=== PATIENT | female | born 1935 | race Caucasian/White ===

== ENCOUNTER 2016-06-23 08:48 | Emergency (ER) | payer OTHER ==
[2016-06-23 09:05] VITALS: RESP 18; TEMP 97.3
--- NOTE | 2016-06-24 07:38 | PDOC ---
Sore Throat/Dental Pain HPI - General Chief Complaint: Sore Throat Stated Complaint: pain to her mouth and gums Date Seen by Provider: 06/23/16 Time Seen by Provider: 09:00 Source: POSITIVE: Patient Exam Limitations: POSITIVE: No limitations Nurse's Notes Reviewed & Considered: Yes - History of Present Illness Initial Comments: The patient is an 80-year-old female. She presents to the emergency room with an approximately one-week history of "sore mouth and gums". She's not noticed any blisters or skin lesions. She wears dentures, both upper and lower. Mild sore throat. No fevers or chills. She hasn't been able to eat without difficulty. She states her mouth feels "dry". Location: Other (Mouth and gums) Timing: REPORTS: Gradual, Getting Worse Duration: <1 week (Approximately one week) Severity: Moderate Quality: REPORTS: "Pain" Context: DENIES: Foreign Body, Ingestion, Fractured Tooth, Other Modifying Factors: worse with: Rest, Exertion, Coughing, OTC Cough Expectorant, OTC Cough Suppressant, Deep Breathing, Lying Flat, Heat, Cold, Other Associated Symptoms: DENIES: Fever, Chills, Unable to Swallow, Runny Nose, Congestion, Toothache, Facial Pain, Earache, Swollen Jaw, Swollen Face, Sore Throat, Jaw Pain, Cough, Swollen Glands, Other Similar Symptoms Previously: No Recently seen/treated/hospitalized: No Any Prior Injuries Related to Current Complaint?: No - Patient Home Medications Home Medications: Home Medications Famotidine [Pepcid] 20 mg PO DAILY #120 tab 02/02/16 Gabapentin 300 mg PO TID PRN #90 cap 03/14/16 Nystatin Susp [Mycostatin Susp] 100,000 unit PO Q6H #280 ml 06/23/16 - Patient Allergies Allergies/Adverse Reactions: Allergies Allergy/AdvReac Type Severity Reaction Status Date / Time erythromycin base Allergy Intermediate NAUSEA Verified 06/23/16 08:53 Estrogens Allergy Intermediate SWELLING Verified 06/23/16 08:53 Tetanus Vaccines and Toxoid Allergy Unknown NOT Verified 06/23/16 08:53 [Tetanus Vaccines & Toxoid] APPLICABLE EGGS Allergy Intermediate SWELLING Uncoded 06/23/16 08:53 Tetanus Allergy Unknown NOT Uncoded 06/23/16 08:53 APPLICABLE Past Medical History - heen HEENT History: Denies History Cardiovascular History: Aneurysm Respiratory History: Denies History Gastrointestinal History: Other (please comment) Additional Gastrointestinal History: colon ca Genitourinary History: Denies History Endocrine History: Denies History Musculoskeletal History: Back Pain Prosthesis or Implant: No Neurological History: Denies History Blood Disorders: Denies History Psychiatric History: Denies History History of Sexually Transmitted Diseases: No Female Reproductive History: Hysterectomy Cancer History: Breast, Colon Cancer Treatment / Date(s) of Treatment: 2015 colon In Past Year Been Physically Harmed or Verbally Threatened: No History of MDRO: No History of Other Communicable Diseases: No Tobacco Use: Never Smoker Alcohol Use: None Substance Use Type: None Previous Surgical History: Yes Type / Date of Surgery: lumpectomies, partial hyst Past Medical History Reviewed: Reviewed - No Changes ROS - Limitations ROS Limitations: No Limitations Constitution: REPORTS: Denies Symptoms Cardiovascular: REPORTS: Denies Cardiac Symptoms Respiratory: REPORTS: Denies Resp Symptoms Neurological: REPORTS: Denies Neuro Symptoms Gastrointestinal: REPORTS: Denies GI Symptoms Endocrine: REPORTS: Denies Symptoms Musculoskeletal: REPORTS: Denies MS Symptoms Genitourinary: REPORTS: Denies Symptoms Eyes: REPORTS: Denies Symptoms ENT: REPORTS: Other (Pain to upper and lower gums tongue and buccal areas) Skin: REPORTS: Denies Skin Symptoms Lympathic: REPORTS: Denies Lympathic Symptoms Immunologic: POSITIVE: Denies Symptoms Psychiatric: POSITIVE: Denies Psych Symptoms Sore Throat/Dental Pain Exam - General Appearance General Appearance: REPORTS: Alert, Cooperative, No Acute Distress, No Evidence of Trauma - HEENT Head / Face: POSITIVE: Atraumatic, Normal Inspection, No Facial Swelling Eyes: POSITIVE: Inspection Normal, PERRL, EOM's Intact, Eyelids Uninjured, Conjunctivae Uninjured, No Nystagmus, No Globe Trauma, Sclera Normal, Normal Corneal Inspection Ears: POSITIVE: Ears Normal Inspection, TM Normal Inspection, Auricle Normal, External Canal Normal Nose: POSITIVE: Inspection Normal, No Apparent Trauma, Nares Normal, No CSF Leak Oropharynx: POSITIVE: Pharynx Inspect. Nml, Airway Intact, Voice Normal, Moist Mucous Membranes, No Oral Injury, Lips Normal, No Drooling, No Thrush, Normal Gag Reflex. NEGATIVE: External Inspection Nml (Tongue and gums erythematous with some swelling of gums. Examination was made after dentures were removed.) , Gums Normal (Erythematous with mild swelling) Neck: POSITIVE: Supple, Normal Inspection, Non Tender Dental: NEGATIVE: No Dental Injury (Edentulous), Dental Injury (Edentulous) - Respiratory Respiratory: REPORTS: No Respiratory Distress, Breath Sounds Normal, No Pleuritic Chest Pain, Speaks Full Sentences, No Pain on Inspiration - Cardiovascular Cardiovascular: REPORTS: Regular Rate and Rhythm, Heart Sounds Normal, Equal Pulses, Strong Pulses Peripheral Pulses: Radial (R): 2+, Radial (L): 2+ - Abdomen Abdomen: Soft: (All Quadrants), Normal Bowel Sounds: (All Quadrants), Denies Tenderness: (All Quadrants), No Splenomegaly: (All Quadrants), No Hepatomegaly: (All Quadrants), No Guarding: (All Quadrants), No Rebound: (All Quadrants), No Palpable Pulse: (All Quadrants), No Palpabale Mass: (All Quadrants), No Distention: (All Quadrants), No Rigidity: (All Quadrants) - Extremities Extremity: Non-Tender: (All Extremities), Normal ROM: (All Extremities), Normal Inspection: (All Extremities) - Skin Skin: REPORTS: Intact, Normal For Race, Warm, Dry, No Rash - Neurological / Psychological Neurological: POSITIVE: Affect Apporpriate, Oriented X3, 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, Motor Normal, Sensation Normal Sore Throat/Dental Progress - Results Reviewed by me Lab Results Reviewed: Yes (strep screen negative) - Patient's Progress Pain Medication Addressed: POSITIVE: Yes (Recommended Tylenol) School/Work Release Addressed: POSITIVE: Not Applicable Re-Examine Time:: 09:30 Status: POSITIVE: Unchanged, Re-Examined - Consult Counseled: POSITIVE: Patient, RE: DX, RE: Need for F/U Patient Care Time - Estimated PCT Patient Care Time (In Minutes): 25 Vital Signs - VS Reviewed Vital Signs Reviewed: Yes Discharge Clinical Impression: Gingivitis, Stomatitis monilial Discharge Disposition: Discharged to Home Condition: Fair Prescriptions / Orders: Nystatin Susp [Mycostatin Susp] 100,000 unit PO Q6H #280 ml Patient Instructions Given at Discharge: Skin Yeast Infection (ED) Additional Instructions: I believe you have an infection in your mouth, probably with yeast, a condition called oral moniliasis. Please take 5 mL of the prescribed liquid and swish and swirl throughout your mouth, gargle with it and then swallow. Do this every 6 hours, which is 4 times a day. Keep your dentures out for 2 weeks. Return anytime if condition worsens. Follow-up with your primary care provider. Follow Up With: HANANE TIMMONS [Primary Care Provider] - (Instructions as above. He was medication for 2 weeks. Follow-up with your primary care provider. Return here anytime if condition worsens in any way.)
== END 2016-06-23 09:39 | disposition home or self-care (01) ==
LOC: ER 08:48
DX: K05.00 Acute gingivitis, plaque induced (principal); B37.0 Candidal stomatitis; J02.9 Acute pharyngitis, unspecified
CPT/HCPCS: 87802; 99282

== ENCOUNTER → 2016-08-29 | Outpatient (CLI) | payer OTHER | LOC: MMPC 11:11 | PROVIDERS: ATTEND Orthopaedic Surgery | DX: L82.1 Other seborrheic keratosis (principal) | CPT/HCPCS: 17110 ×2; G0463 ==

== ENCOUNTER → 2016-11-05 | Outpatient (CLI) | payer OTHER ==
[2016-11-05 12:48] LABS: HEMATOCRIT 44.1 % (37.0-47.0); HEMOGLOBIN 14.9 g/dL (12.0-16.0); MEAN CORPUSCULAR HEMOGLOBIN 28.5 PG (27-31); MEAN CORPUSCULAR HGB CONC 33.8 g/dL (33-37); MEAN CORPUSCULAR VOLUME 84.3 FL (81-99); MEAN PLATELET VOLUME 10.3 FL (7.4-12.2); RED BLOOD COUNT 5.23 10^6/uL (4.20-5.40)
[2016-11-05 12:55] LABS: CALCIUM 9.4 mg/dL (8.7-10.7); SERUM ALBUMIN 4.1 g/dL (3.5-4.8)
== END ==
LOC: MOB LAB 11:16
PROVIDERS: ATTEND Nurse Practitioner Family
DX: S50.861A Insect bite (nonvenomous) of right forearm, initial encounter (principal); R53.83 Other fatigue; W57.XXXA Bitten or stung by nonvenomous insect and other nonvenomous arthropods, initial encounter
CPT/HCPCS: 36415; 80053; 85027; 86618; 99213